=== PATIENT | female | born 1975 | race Caucasian/White ===

== ENCOUNTER 2022-05-15 19:59 | Emergency (ER) | payer OTHER, SELFPAY ==
[2022-05-15 20:16] VITALS: BP 118/74; PULSE 80; RESP 18; TEMP 36.4; O2SAT 98
[2022-05-15 20:20] VITALS: BP 120/78; PULSE 78; RESP 18; TEMP 36.4; O2SAT 98; BMI 21.9
--- NOTE | 2022-05-15 20:30 | ED.WOUNDLAC ---
HPI - Wound/Laceration General Chief Complaint: Laceration/Wound Stated Complaint: RIGHT INDEX FINGER TIP CUT OFF - BLEEDING Time Seen by Provider: 05/15/22 20:25 History of Present Illness HPI narrative: Pt is a 46 year old woman who is up to date on her Tdap who presents after avulsing the tip of her index finger on the right hand while cutting up potatoes. Pt is able to stop bleeding with direct pressure. No bony or ligamentous injuries. Pt has full use of the affected finger and hand. Injury occured just prior to the time of arrival. Related Data Home Medications Medication Instructions Recorded Confirmed No Known Home Medications 05/15/22 05/15/22 Allergies Allergy/AdvReac Type Severity Reaction Status Date / Time Penicillins Allergy Intermediate Hives Verified 05/15/22 20:24 meperidine [From Demerol] AdvReac Intermediate GI Upset Verified 05/15/22 20:24 Erythromycin Allergy Intermediate Hives Uncoded 05/15/22 20:24 Review of Systems Status of ROS: Reports: 10 or more systems reviewed and unremarkable except as noted in History and below Exam Narrative: Exam Narrative: EXAM GENERAL: Patient appears comfortable and well. EYES: No scleral icterus. THYROID: no thyroid nodules or thyromegaly. LYMPH: No supraclavicular or cervical lymphadenopathy. SKIN: 1 cm avulsion injury of the tip of the index finger on the right hand. Affected tissue missing. EXT: No dependent lower extremity pedal edema. HEART: Regular rate and rhythm with no murmurs, rubs, or gallops. LUNGS: Clear to auscultation bilaterally with no crackles or wheezes. ABD: Soft, non tender, non distended. PSYCH: Good eye contact, speech is not pressured. Const: Vital Signs, click to edit/add: Vital Signs - 24 hr 05/15/22 20:20 Temperature 97.6 F Pulse Rate [Right Pulse Oximeter] 78 Respiratory Rate 18 Blood Pressure [Ri ght Upper Arm] 120/78 Pulse Oximetry 98 Oxygen Delivery Me thod Room Air Course Course Hospital Course: Pt seen and examined. Explained that there really is nothing to suture. Cleaned the wound. Ensured that pt is up to date on Tdap. Gel foam placed. Wound dressed. Vital Signs Vital signs: Initial Vital Signs Temperature 97.6 F 05/15/22 20:20 Temperature Source Temporal Artery Scan 05/15/22 20:20 Pulse Rate 78 05/15/22 20:20 Respiratory Rate 18 05/15/22 20:20 Blood Pressure 120/78 05/15/22 20:20 Blood Pressure Mean 92 05/15/22 20:20 Blood Pressure Position Sitting 05/15/22 20:20 Pulse Oximetry 98 05/15/22 20:20 Oxygen Delivery Method 05/15/22 20:20 Vital Signs Temperature 97.6 F 05/15/22 20:20 Pulse Rate 78 05/15/22 20:20 Respiratory Rate 18 05/15/22 20:20 Blood Pressure 120/78 05/15/22 20:20 Pulse Oximetry 98 05/15/22 20:20 Oxygen Delivery Method 05/15/22 20:20 Temperature 97.6 F 05/15/22 20:20 Pulse Rate 78 05/15/22 20:20 Respiratory Rate 18 05/15/22 20:20 Blood Pressure 120/78 05/15/22 20:20 Pulse Oximetry 98 05/15/22 20:20 Oxygen Delivery Method 05/15/22 20:20 MDM - Wound/Laceration MDM Narrative Medical decision making narrative: Avulsion injury with missing defect. Wound cleaned and dressed with gel foam. Recommended daily dressing changes with triple antibiotic. Differential Diagnosis Differential diagnosis: Likely laceration, abrasion and avulsion of skin Discharge Plan Discharge Clinical Impression: Avulsion of skin Patient Disposition: Home, Self-Care Condition: Stable Additional Instructions: Daily dressing changes with Triple Antibiotic Tylenol Motrin Follow up with your doctor as needed Activity Level: Activity as Tolerated Discharge Diet: Regular Prescriptions: No Action No Known Home Medications Follow Up/Referrals: Provider,Not a Local [Primary Care Provider] - Stand Alone Forms: MyHealth Info Instructions
[2022-05-15 20:46] VITALS: BP 120/78; PULSE 78; RESP 18; TEMP 36.4
== END 2022-05-15 20:56 | disposition home or self-care (01) ==
PROVIDERS: Emergency Provider Internal Medicine; PCP Obstetrics & Gynecology
DX: S61.210A Laceration without foreign body of right index finger without damage to nail, initial encounter (principal); W26.0XXA Contact with knife, initial encounter; Y93.G3 Activity, cooking and baking; Y92.010 Kitchen of single-family (private) house as the place of occurrence of the external cause; Y99.8 Other external cause status
CPT/HCPCS: 99283

== ENCOUNTER 2022-10-19 14:23 | Outpatient (CLI) | payer OTHER, SELFPAY ==
--- NOTE | 2022-10-19 14:40 | CRLHL7_ITS ---
For Patients: As a result of the Century Cures Act, medical imaging exams and procedure reports are released immediately into your electronic medical record. You may view this report before your referring provider. If you have questions, please contact your health care provider. BILATERAL SCREENING MAMMOGRAM WITH COMPUTER-AIDED DETECTION AND TOMOSYNTHESIS TECHNIQUE: CC, MLO and Implant displaced views were obtained. These mammographic images have been obtained using full-field digital technique. These mammographic images were interpreted with the benefit of computer-aided detection. Breast Tomosynthesis was used in this interpretation. COMPARISON FILM: 09/27/20; 11/15/18 FINDINGS: The breasts are extremely dense, which lowers the sensitivity of mammography. IMPRESSION: There is no radiographic evidence for malignancy. ASSESSMENT: BI-RADS Category 2: Benign RECOMMENDATION: Routine screening mammogram in 1 year. A lay language report of this examination will be provided to the patient. Javier Chaidez M.D. Diagnostic Radiologist [email or web address] Transcribed: 12:37 p.m. PT/Dictated by: Javier Chaidez MD @ 10/20/2022 8:27:00 AM (Electronically Signed)
== END 2022-10-19 14:24 | disposition home or self-care (01) ==
LOC: MAMMO 14:24
PROVIDERS: Visit Provider Obstetrics & Gynecology
DX: Z12.31 Encounter for screening mammogram for malignant neoplasm of breast (principal); R92.2 Inconclusive mammogram
CPT/HCPCS: 77063; 77067

== ENCOUNTER 2022-11-24 09:59 | Outpatient (CLI) | payer OTHER, SELFPAY | END 2022-11-24 10:00 | disposition home or self-care (01) | PROVIDERS: Visit Provider Obstetrics & Gynecology | DX: Z01.419 Encounter for gynecological examination (general) (routine) without abnormal findings (principal); Z13.6 Encounter for screening for cardiovascular disorders; Z13.1 Encounter for screening for diabetes mellitus | CPT/HCPCS: 80061; 82947 ==

== ENCOUNTER 2023-07-09 10:28 | Outpatient (CLI) | payer OTHER, SELFPAY | END 2023-07-09 10:29 | disposition home or self-care (01) | LOC: NFLDREF 07-12 06:06 | PROVIDERS: Visit Provider Obstetrics & Gynecology | DX: B37.31 Acute candidiasis of vulva and vagina (principal); N93.9 Abnormal uterine and vaginal bleeding, unspecified; Z11.3 Encounter for screening for infections with a predominantly sexual mode of transmission | CPT/HCPCS: 86592; 86703; 86706; 86803; 87340; 87491; 87591 ==

== ENCOUNTER 2023-09-26 10:28 | Outpatient (CLI) | payer OTHER, SELFPAY ==
[2023-09-26 13:41] LABS: Chlamydia DNA Amplified* NOT DETECTED (No Detected); GC DNA Amplified* NOT DETECTED (No Detected)
== END 2023-09-26 10:29 | disposition home or self-care (01) ==
LOC: NFLDREF 10:29
PROVIDERS: Visit Provider Registered Nurse
DX: N89.8 Other specified noninflammatory disorders of vagina (principal)
CPT/HCPCS: 87491; 87591

== ENCOUNTER 2023-12-19 08:27 | Outpatient (CLI) | payer OTHER, SELFPAY ==
--- NOTE | 2023-12-19 08:45 | MM_ITS ---
Patient: ANAI TORRES Facility:?[facility] Patient ID:?[id number] Site Patient ID:?[id number] Site :?[id number] Study:?XRay-Breast Bilateral 3D W/CAD-12/19/2023 9:31:46 AM Ordering Physician:Shobha Fischer Final Report: BILATERAL DIGITAL DIAGNOSTIC MAMMOGRAM WITH TOMOSYNTHESIS, 12/19/2023 CLINICAL HISTORY: BILATERAL breast mastodynia which has since passed. COMPARISON: 10/19/2022, 08/17/2021, 09/27/2020. TECHNIQUE: Digital BILATERAL mammogram in 4 projections. BREAST COMPOSITION: Heterogeneously dense. FINDINGS: BILATERAL mammogram images demonstrate normal breast tissue. Implants are intact. No suspicious masses or architectural distortion. No suspicious calcifications or adenopathy. IMPRESSION: Normal BILATERAL mammogram examination. No suspicious findings. No malignancy. RECOMMENDATIONS: Clinical follow-up and routine annual BILATERAL screening mammography. BI-RADS: 2. Benign. Dictated by Javier Chaidez MD @ 12/19/2023 10:11:20 AM/CRL:johnny GONGORA/Dictated by: Javier Chaidez MD @ 12/19/2023 10:11:00 AM Signed by:?Javier Chaidez MD @12/19/2023 11:19:00 AM (Electronic Signature)
== END 2023-12-19 08:28 | disposition home or self-care (01) ==
LOC: MAMMO 08:27
PROVIDERS: Visit Provider Obstetrics & Gynecology
DX: N64.4 Mastodynia (principal); Z12.31 Encounter for screening mammogram for malignant neoplasm of breast; R92.2 Inconclusive mammogram
CPT/HCPCS: 77066; 77067; G0279

== ENCOUNTER 2024-12-09 14:45 | Outpatient (CLI) | payer OTHER, SELFPAY ==
[2024-12-12 07:11] LABS: HPV Source Cervix; HPV, High Risk by TMA Not Detected
== END 2024-12-09 14:46 | disposition home or self-care (01) ==
PROVIDERS: Visit Provider Obstetrics & Gynecology
DX: Z12.4 Encounter for screening for malignant neoplasm of cervix (principal); Z11.51 Encounter for screening for human papillomavirus (HPV)
CPT/HCPCS: 87624; 87625; 88141; 88142

== ENCOUNTER 2025-01-19 12:55 | Outpatient (CLI) | payer OTHER, SELFPAY ==
--- NOTE | 2025-01-19 13:00 | CRLHL7_ITS ---
For Patients: As a result of the Cures Act, medical imaging exams and procedure reports are released immediately into your electronic medical record. You may view this report before your referring provider. If you have questions, please contact your health care provider. BILATERAL DIGITAL SCREENING MAMMOGRAM WITH COMPUTER-AIDED DETECTION AND TOMOSYNTHESIS CLINICAL HISTORY: : Routine screening exam. COMPARISON: 12/19/2023, 10/19/2022, 08/17/2021 TECHNIQUE: Digital mammogram in CC and MLO projections including computer-aided detection (CAD). Tomosynthesis was used in this interpretation. BREAST COMPOSITION: The breasts are extremely dense, which lowers the sensitivity of mammography. FINDINGS: RIGHT Breast: No suspicious findings LEFT Breast: Focal asymmetric density in the upper left breast 12 o`clock 3 cm from the nipple, different than the lymph node previously visualized, probable cyst. IMPRESSION: LEFT breast asymmetry/mass. RECOMMENDATIONS: Additional mammographic views of the LEFT breast including 3D spot compression CC/MLO. LEFT breast ultrasound may also be required. The [facility] will contact the patient. A lay language report of this examination will be provided to the patient. BI-RADS Category 0: Incomplete: Need Additional Imaging Evaluation Dictated by Javier Chaidez MD @ 01/20/2025 8:40:08 AM Dictated by: Javier Chaidez MD @ 01/20/2025 08:40:17 (Electronically Signed)
== END 2025-01-19 12:56 | disposition home or self-care (01) ==
LOC: MAMMO 12:56
PROVIDERS: Visit Provider Obstetrics & Gynecology
DX: Z12.31 Encounter for screening mammogram for malignant neoplasm of breast (principal); R92.343 Mammographic extreme density, bilateral breasts; N63.20 Unspecified lump in the left breast, unspecified quadrant; Z98.82 Breast implant status
CPT/HCPCS: 77063; 77067

== ENCOUNTER 2025-01-23 07:48 | Outpatient (CLI) | payer OTHER, SELFPAY ==
--- NOTE | 2025-01-23 07:45 | CRLHL7_ITS ---
For Patients: As a result of the Cures Act, medical imaging exams and procedure reports are released immediately into your electronic medical record. You may view this report before your referring provider. If you have questions, please contact your health care provider. LEFT DIAGNOSTIC MAMMOGRAM WITH COMPUTER-AIDED DETECTION AND TOMOSYNTHESIS LEFT BREAST ULTRASOUND CLINICAL HISTORY: LEFT breast mass/asymmetry. COMPARISON: 01/19/2025. TECHNIQUE: Digital LEFT mammogram in two projections with computer-aided detection. Tomosynthesis was used in this interpretation. Real-time ultrasound imaging of LEFT breast with imaging documentation. Scanning was performed by both the technologist and the radiologist. BREAST COMPOSITION: The breasts are extremely dense, which lowers the sensitivity of mammography. FINDINGS: 3D spot compression CC/MLO LEFT breast mammogram images submitted. Decreased conspicuity of previously noted asymmetric density. No architectural distortion. No suspicious calcifications. Implant intact. Targeted LEFT breast ultrasound performed from 12-1 o`clock, 3 cm from the nipple. Normal breast tissue is present. No fluid about the implant. No fibrocystic change or mass. IMPRESSION: No suspicious findings. No evidence of malignancy. RECOMMENDATIONS: Routine screening mammography. A lay language report of this examination will be provided to the patient. BI-RADS Category 2: Benign Dictated by Javier Chaidez MD @ 01/23/2025 9:10:04 AM /sp SP/Dictated by: Javier Chaidez MD @ 01/23/2025 9:10:00 AM (Electronically Signed)
--- NOTE | 2025-01-23 08:15 | CRLHL7_ITS ---
For Patients: As a result of the Century Cures Act, medical imaging exams and procedure reports are released immediately into your electronic medical record. You may view this report before your referring provider. If you have questions, please contact your health care provider. PLEASE SEE LEFT BREAST DIAGNOSTIC MAMMOGRAM PERFORMED SAME DAY. CRL:sp SP/Dictated by: Javier Chaidez MD @ 01/23/2025 9:10:00 AM (Electronically Signed)
== END 2025-01-23 07:49 | disposition home or self-care (01) ==
LOC: MAMMO 07:49
PROVIDERS: Visit Provider Obstetrics & Gynecology
DX: N63.20 Unspecified lump in the left breast, unspecified quadrant (principal); R92.8 Other abnormal and inconclusive findings on diagnostic imaging of breast
CPT/HCPCS: 76642; 77065; G0279